=== PATIENT | male | born 1955 | race Caucasian/White ===

== ENCOUNTER 2016-10-29 07:19 | Emergency (ER) | payer BC ==
[2016-10-29] MEDS ORDERED: Sodium Chloride 0.9% 10 ML Syringe FLUSH PRN (07:24)
[2016-10-29] MEDS ORDERED: Ondansetron 4 MG/2 ML SDV IVPUSH ONE (07:24)
[2016-10-29] MEDS ORDERED: Sodium Chloride 0.9% 2.5 ML Syringe FLUSH PRN (07:24)
[2016-10-29] MEDS ORDERED: Sodium Chloride 0.9% 1,000 ML IV ONE (07:24)
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
[2016-10-29 08:15] LABS: CHLORIDE,CL 107 mmol/L (98-110); SODIUM,NA 139 mmol/L (136-146)
[2016-10-29 08:38] VITALS: BP 112/70
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
--- NOTE | 2016-10-29 13:12 | CT ---
EXAM DATE: 10/29/16 PATIENT'S AGE: 61 Patient: BIANCA HINOJOSA Facility: [place], [place] Site . Site : 1955 Study: CT Abdomen/Pelvis wo josefina [id number]/26/2017 8:09:39 AM Ordering Physician: Lewis Stark Final Report: HISTORY: Abdomen pain for 2 weeks. Lump above the left groin. TECHNIQUE: The abdomen and pelvis were scanned using helical technique at 3 mm intervals without IV contrast. Sagittal and coronal reconstructions were performed. FINDINGS: Lung bases: There is a mild elevation left hemidiaphragm. Bibasilar linear atelectasis or scarring is present. Liver and gallbladder: There are 2 small less than 1 cm hypodense foci seen in the liver parenchyma too small to accurately characterize most likely hepatic cysts. The gallbladder is small. There is increased density within the lumen suggesting a calcified stones or sludge. Spleen, pancreas and adrenal glands: Unremarkable. Kidneys and bladder: No calcified urolithiasis or hydronephrosis. Bladder is within normal limits. Retroperitoneum and lymph nodes: The abdominal aorta is normal in caliber. No pathologic pop aortic or pelvic sidewall lymphadenopathy is seen. GI tract: Percutaneous gastric tube is in place. The stomach is distended with fluid. Fluid-filled small bowel loops are seen in the pelvis measuring up to 2.7 cm. These inter a left inguinal hernia. Loops exiting the hernia are smaller in caliber. The appendix is normal. There is stool and gas seen scattered throughout the colon. There diverticula of the descending and sigmoid colon without surrounding inflammatory change. There is no free air in the abdomen. There is no free fluid in the pelvis. Pelvic organs: Prostate is generous. Osseous structures: There are degenerative changes within the lumbar spine. IMPRESSION: 1. Distended stomach and small bowel extending into a left inguinal hernia with smaller caliber small bowl loops leaving the hernia suggesting low-grade or partial small bowel obstruction. 2. Percutaneous gastric tube in place. 3. Colonic diverticulosis. 4. Two subcentimeter hypodense lesions in the liver parenchyma most likely hepatic cysts. 5. Cholelithiasis or sludge seen in a contracted gallbladder. Dictated by Courtney Gerard MD @ 10/29/2016 8:24:42 AM Dictated by: Courtney Gerard MD @ 10/29/2016 08:24:58 (Electronic Signature) Report Signed by Proxy. [email or web address]
--- NOTE | 2016-10-29 13:17 | CR ---
EXAM DATE: 10/29/16 PATIENT'S AGE: 61 Patient: BIANCA HINOJOSA Facility: [place], [place] Site . Site : 1955 Study: XRay Chest [id number]/26/2017 8:23:11 AM Ordering Physician: Lewis Stark Final Report: HISTORY: Chest pain, shortness of breath. FINDINGS: Lateral and 2 PA views of the chest demonstrates a right-sided Port-A-Cath with tip in SVC. Cardiac silhouette is slender. Pulmonary vasculature is free of cephalization. No lobar consolidation, pleural effusion or pneumothorax is seen. Old right-sided rib fractures are present. Peridiscal spurring is seen within the thoracic spine. IMPRESSION: No acute cardiopulmonary disease. Dictated by Courtney Gerard MD @ 10/29/2016 8:35:46 AM Dictated by: Courtney Gerard MD @ 10/29/2016 08:36:11 (Electronic Signature) Report Signed by Proxy. CARLENE
== END 2016-10-29 08:50 ==
LOC: MW.ED 07:19
DX: K40.30 Unilateral inguinal hernia, with obstruction, without gangrene, not specified as recurrent (principal); J44.9 Chronic obstructive pulmonary disease, unspecified; K21.9 Gastro-esophageal reflux disease without esophagitis; Z85.038 Personal history of other malignant neoplasm of large intestine; F17.210 Nicotine dependence, cigarettes, uncomplicated; Z85.89 Personal history of malignant neoplasm of other organs and systems
CPT/HCPCS: 36415; 71020; 74176; 80053; 83605; 85025; 85610; 86850; 86900; 86901; 93005; 96361; 96374; 99285; J2405; J7040